=== PATIENT | female | born 1975 | race Two or more races ===

== ENCOUNTER → 2019-05-02 | Outpatient (CLI) | payer OTHER ==
[~2019-05-02] MED LIST: LEVSIN/SL0.125 MG SL; PEPCID40 MG PO; PHENERGAN25 MG PO
== END | disposition home or self-care (01) ==
LOC: MRI 10:00
DX: M50.10 Cervical disc disorder with radiculopathy, unspecified cervical region (principal)
CPT/HCPCS: 72141